=== PATIENT | male | born 1985 | race Caucasian/White ===

== ENCOUNTER 2016-06-24 01:14 | Emergency (ER) | payer SELFPAY ==
[2016-06-24] MEDS ORDERED: oxyCODONE/ACETAMINOPHEN 5/325 TABLET PO ONE (01:33)
[2016-06-24] MEDS ORDERED: SULFAMETHOXAZOLE/TRIMETHOPRIM 1 EACH TABLET PO ONE (02:28)
[2016-06-24] MEDS ORDERED: IBUPROFEN 400 MG TABLET PO ONE (02:32)
[2016-06-24 04:25] VITALS: BP 132/78
--- NOTE | 2016-06-24 05:14 | Diagnostic Imaging Report ---
[facility] [address] [facility].[address] [address] Report Submission Date: Jun 24, 2016 2:13:27 AM CDT Patient Study Name: ELLIS GAN Date: Jun 24, 2016 1:56:23 AM CDT Modality Type: CR Gender: M Description: UPPER EXTREMITY : 87 Institution: [facility] Physician: GRACE ADAM - QUEENIE Left hand - three views Clinical history: Injury. Pain. Findings: Examination of the left hand in palmar, lateral and oblique views demonstrates a fracture through the base of the fourth distal phalanx. There is resorption at the fracture site with minimal displacement of the fracture fragments by 1-2 mm. There is no new fracture identified. Impression: 1. Transverse fracture of the base of the fourth distal phalanx with resorption at the fracture site. 2. No new fracture since 06/13/2016. Electronically signed on Jun 24, 2016 2:13:27 AM CDT by: Philipp WHEATLEY
--- NOTE | 2016-06-24 12:10 | ED Physician Documentation ---
Hand Injury - HISTORIAN Historian: patient - HPI Stated Complaint: Injury to distal Left 4th digit Chief Complaint: Hand Injury Additional Information: punched wall, same hand that he broke left 4th finger on 1-2 weeks ago Onset: just prior to arrival Where: home Severity: moderate Duration: persistent since (injury) Context: blow Location of Injury: L fingers Modifying Factors: pain on movement Further Comments: no - ROS CONST: no problems GI/: denies: problems urinating, nausea NEURO: none CVS/RESP: none EYES/ENT: none MS/SKIN/LYMPH: other (left 4th finger) - PAST HX Past History: none Immunizations: referred to PCP Allergies/Adverse Reactions: Allergies Allergy/AdvReac Type Severity Reaction Status Date / Time No Known Allergies Allergy Verified 06/24/16 01:26 Home Medications: Ambulatory Orders Medication Instructions Recorded NK [NK] 09/11/15 - SOCIAL HX Smoking History: cigarettes Alcohol Use: none Drug Use: none - FAMILY HX Family History: no significant history - VITAL SIGNS Vital Signs: Vital Signs Temp Pulse Resp BP Pulse Ox 88 20 132/78 95 06/24/16 04:22 06/24/16 04:22 06/24/16 04:22 06/24/16 01:15 - REVIEWED ASSESSMENTS Nursing Assessment Reviewed: Yes Vitals Reviewed: Yes Progress - Results/Orders Results/Orders: x-ray left hand ordered - Progress Progress: pt. given 800 mg Motrin p.o., 1 bactrim DS p.o. and 2 percocet 5/325 p.o. in er Critical Care Note - Critical Care Note Total Time (mins): 0 ED Results Lab/Radiology - Lab Results Lab Results: none ordered - Radiology Radiology Impressions: x-ray left hand shows no new fx, healing left 4th finger fx - Orders Orders: ED Orders Category Date Time Status HAND 3 VIEWS OR MORE [RAD] Stat Exams 06/24/16 Completed Ibuprofen [Advil] Med 06/24/16 02:32 Discontinued 800 mg PO NOW ONE Sulfamethoxazole/Trimethoprim [Bactrim Ds] Med 06/24/16 02:28 Discontinued 1 each PO NOW ONE oxyCODONE HCL/ACETAMINOPHEN [Percocet 5-325 mg Tablet] Med 06/24/16 01:33 Discontinued 2 each PO NOW ONE Hand Injury Physical Exam - Exam General Appearance: alert, moderate distress Hand: tenderness (left 4th nailbed), other (erythema left 4th nailbed) Wrist: normal inspection, non-tender, no evidence of injury, normal ROM Neuro: sensation nml, other (decreased sensation distal left 4th finger) Vascular: no vascular compromise Tendons: tendon function nml Forearm/Elbow/Arm: uninjured above wrist Skin: warm/dry, other (erythema distal left 4th finger) Head/ENT: nml inspection Neck/Back: nml inspection Resp/CVS: chest non-tender, breath sounds nml, heart sounds nml Abdomen: non-tender, no organomegaly, nml bowel sounds Discharge Clincal Impression: Cellulitis, finger Qualifiers: Laterality: left Qualified Code(s): L03.012 - Cellulitis of left finger Referrals: Primary Doctor,No [Primary Care Provider] - 2 Days Home Medications: Ambulatory Orders NK [NK] 09/11/15 Comments: discharged with script for Meloxicam 7.5 mg #10 1 p.o. bid and Tizanidine 4 mg # 20 1 p.o. qid Condition: Stable Disposition: 01 HOME, SELF-CARE Decision to Admit: NO Decision Time: 04:10
== END 2016-06-24 02:45 | disposition home or self-care (01) ==
LOC: ED 01:14
DX: L03.012 Cellulitis of left finger (principal)
CPT/HCPCS: 73130; A9270; 99283

== ENCOUNTER 2018-03-12 11:56 | Emergency (ER) | payer SELFPAY ==
[2018-03-12 12:21] VITALS: BP 142/87
[2018-03-12] MEDS ORDERED: cefTRIAXone SODIUM 250 MG INJ IM ONE (12:29)
[2018-03-12] MEDS ORDERED: AZITHROMYCIN 1 GM PACKET PO ONE (12:29)
[2018-03-12] MEDS ORDERED: AZITHROMYCIN 250 MG TABLET PO ONE (12:40)
--- NOTE | 2018-03-12 12:58 | ED Physician Documentation ---
Male Genitourinary Problems - HISTORIAN Historian: patient - HPI Stated Complaint: Burning on urination Chief Complaint: Male Genitourinary Problems Onset: days ago (Monday) Duration: continues in ED Further Comments: yes (32 year old male patient presents with complaint of green drainage from penis with urinary urgency and dysuria. Reports unprotected intercourse with 2 different women in past 14 days.) - Associated Symptoms Problems Urinating: burning w/ urination, pain w/ urination Penile Discharge Descripiton: thick ("green") Testicular Pain: none Testicular Swelling: none Penile Swelling: No Flank Pain: none Abdominal Pain: none - Sexual History Sexual History: unprotected intercourse (exposure from 2 women in the past 14 days. ) - ROS CONST: none GI/: denies: nausea, vomiting MS/SKIN/LYMPH: none CVS/RESP: none EYES/ENT: none - PAST HX Past History: denies: STD Cardiac Disease: none Surgeries/Procedures: none Allergies/Adverse Reactions: Allergies Allergy/AdvReac Type Severity Reaction Status Date / Time No Known Allergies Allergy Verified 03/12/18 12:23 Home Medications: Ambulatory Orders Medication Instructions Recorded NK 09/11/15 - SOCIAL HX Smoking History: cigarettes - FAMILY HX Family History: denies: none - VITAL SIGNS Vital Signs: Vital Signs Temp Pulse Resp BP Pulse Ox 98.4 F 106 H 16 142/87 99 03/12/18 12:09 03/12/18 12:09 03/12/18 12:09 03/12/18 12:09 03/12/18 12:09 - REVIEWED ASSESSMENTS Nursing Assessment Reviewed: Yes Vitals Reviewed: Yes Progress - Progress Progress: Patient treated in ER with rocephin and azithromycin. ED Results Lab/Radiology - Orders Orders: ED Orders Category Date Time Status GC [CHLAMYDIA & GONORRHOEAE] Stat Lab 03/12/18 Ordered Azithromycin [Zithromax] Med 03/12/18 12:29 Discontinued 1 gm PO NOW ONE Azithromycin [Zithromax] Med 03/12/18 12:40 Discontinued 1,000 mg PO .STK-MED ONE cefTRIAXone SODIUM [Rocephin] Med 03/12/18 12:29 Discontinued 125 mg IM NOW ONE Male Genitourinary Problems - EXAM General Appearance: mild distress, anxious Genitals: other (patient refused Male exam) EENT: eye inspection normal, DILLON Respiratory: no resp distress, chest non-tender, breath sounds normal CVS: reg rate & rhythm, heart sounds normal, equal pulses, no murmur, no gallop, PMI nml, no JVD, no friction rub, 24 Neuro/Psych: oriented X3, motor nml, sensation nml, mood/affect nml Skin: normal color, warm/dry, NR, INT, PAL, DR Discharge Clincal Impression: STD exposure Referrals: Primary Doctor,No [Primary Care Provider] - 2 Days Additional Instructions: STD screening has been completed. Results will be available Monday You have been treated for gonorrhea and chlamydia while you were in the ER Use a condom during sexual intercourse. Condition: Stable Disposition: HOME, SELF-CARE Decision to Admit: NO Decision Time: 12:47
== END 2018-03-12 13:09 | disposition home or self-care (01) ==
LOC: ED 11:56
DX: A54.9 Gonococcal infection, unspecified (principal); Z20.2 Contact with and (suspected) exposure to infections with a predominantly sexual mode of transmission
CPT/HCPCS: 87491; 87591; 96372; 99282; 99283; J0696

== ENCOUNTER 2018-03-23 15:43 | Emergency (ER) | payer SELFPAY ==
[2018-03-23 15:57] VITALS: BP 126/91
[2018-03-23] MEDS ORDERED: AZITHROMYCIN 1 GM PACKET PO ONE (16:40)
[2018-03-23] MEDS ORDERED: LIDOCAINE HCL 1%/EPI. (1:100,000) MDV 20ML VIAL IJ ONE (16:41)
[2018-03-23] MEDS ORDERED: cefTRIAXone SODIUM 1 GM INJ IM ONE (16:41)
[2018-03-23] MEDS ORDERED: LIDOCAINE HCL 1% PF 50MG/5ML AMP (IM/SUTURE/PAIN CLINIC) IJ ONE (17:06)
--- NOTE | 2018-03-23 17:33 | ED Physician Documentation ---
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 pt was seen here recently in the ED for penile discharge and treated for GC/chlamydia with Rocephin 150 mg and 1 gm azithromycin with symptoms resolving. He reports he was still having intercourse with partner and she has now developed symptoms. pt had a positive GC culture. Duration: gone now, better - Associated Symptoms Problems Urinating: none - Sexual History Sexual History: unprotected intercourse, known exp. to STD - ROS CONST: none - PAST HX Past History: other (denies ) Surgeries/Procedures: none Allergies/Adverse Reactions: Allergies Allergy/AdvReac Type Severity Reaction Status Date / Time No Known Allergies Allergy Verified 03/23/18 15:54 Home Medications: Ambulatory Orders Medication Instructions Recorded NK 09/11/15 - SOCIAL HX Smoking History: greater than 1 pack/day - FAMILY HX Family History: none - VITAL SIGNS Vital Signs: Vital Signs Temp Pulse Resp BP Pulse Ox 96.9 F L 123 H 16 126/91 98 03/23/18 17:33 03/23/18 17:33 03/23/18 17:33 03/23/18 17:33 03/23/18 17:33 - REVIEWED ASSESSMENTS Nursing Assessment Reviewed: Yes Vitals Reviewed: Yes ED Results Lab/Radiology - Lab Results Lab Results: Lab Results 03/23/18 16:19 Urine Color Yellow (YELLOW) Urine Appearance Clear (CLEAR) Urine pH 7.0 (5.0 - 8.0) Ur Specific [place] 1.025 (1.010-1.030) Urine Protein Negative mg/dL mg/dL (NEGATIVE) Urine Ketones Negative mg/dL mg/dL (NEGATIVE) Urine Occult Blood Negative (NEGATIVE) Urine Nitrite Negative (NEGATIVE) Urine Bilirubin Negative (NEGATIVE) Urine Urobilinogen 0.2 Eu Eu (0.2-1.0) Ur Leukocyte Esterase Negative (NEGATIVE) Urine Glucose Negative mg/dL mg/dL (NEGATIVE) - Orders Orders: ED Orders Category Date Time Status GC [CHLAMYDIA & GONORRHOEAE] Stat Lab 03/23/18 16:15 Received UA W/MICRO IF INDICATED Stat Lab 03/23/18 16:19 Completed Azithromycin [Zithromax] Med 03/23/18 16:40 Discontinued 1 gm PO NOW ONE Lidocaine 1% 5ml(IM or SUTURE) [Xylocaine] Med 03/23/18 17:06 Discontinued 21 mg IJ NOW ONE Lidocaine 1%/Epinephrine [Xylocaine 1%-EPI 1:100,000] Med 03/23/18 16:41 Discontinued 2.1 ml IJ NOW ONE cefTRIAXone SODIUM [Rocephin] Med 03/23/18 16:41 Discontinued 1 gm IM NOW ONE Male Genitourinary Problems - EXAM General Appearance: no acute distress, alert Abdomen: non-tender, no organomegaly Genitals: nml inspection, testicles nml palp. EENT: eye inspection normal, ENT inspection normal, pharynx normal, no signs of dehydration, DILLON, no nystagmus, TM's nml Neck: nml inspection Respiratory: no resp distress, chest non-tender, breath sounds normal CVS: reg rate & rhythm, heart sounds normal, equal pulses, no murmur, no gallop, PMI nml, no JVD, no friction rub, 24 Back: non-tender, painless ROM Extremities: normal range of motion, non-tender, normal inspection, no pedal edema, no calf tenderness, normal capillary refill Neuro/Psych: oriented X3, motor nml, sensation nml, mood/affect nml Skin: normal color, warm/dry, NR, INT, PAL, DR Discharge Clincal Impression: STD exposure Additional Instructions: no sexual activity until partners antibiotics resolved. then you must use protection until your cultures come back to make sure you are both adequately treated. follow up with health dept for further testing for hepatitis and HIV seek medical care immediately if difficult to wake or weakness, difficulty breathing, feeling faint or fainting, increased rash, chest pain, shortness of breath, or fever not controlled by tylenol/motrin or any concern. follow up with primary care next week or before if not improving as expected. PLEASE UNDERSTAND THAT THIS IS AN EMERGENCY EVALUATION FOR YOUR COMPLAINT AND BY NATURE IS LIMITED AND NOT A SUBSTITUTE FOR ONGOING MEDICAL CARE. EVEN THOUGH TEST RESULTS AND TREATMENT PLAN WERE EXPLAINED THERE MAY BE A NEED FOR ADDITIONAL TESTING TO FULLY DETERMINE THE EXTENT OF YOUR ILLNESS/INJURY/OR CONCERN SO YOU SHOULD CONTACT AND OR ESTABLISH WITH A PRIMARY CARE PROVIDER (OR REFERRAL DOCTOR IF APPLICABLE) FOR AN APPOINTMENT SOON POSSIBLE Condition: Good Disposition: 01 HOME, SELF-CARE Decision to Admit: NO Date of Decison to Admit: 03/23/18 Decision Time: 17:27
[2018-03-23 18:02] LABS: APPEARANCE,URINE CLEAR (CLEAR); COLOR,URINE YELLOW (YELLOW); OCCULT BLOOD,URINE NEGATIVE (NEGATIVE); UROBILINOGEN URINE 0.2 Eu (0.2-1.0)
== END 2018-03-23 17:33 | disposition home or self-care (01) ==
LOC: ED 15:43
DX: Z20.2 Contact with and (suspected) exposure to infections with a predominantly sexual mode of transmission (principal)
CPT/HCPCS: 81002; 87491; 87591; 96372; 99282; 99284; J0456; J0696

== ENCOUNTER 2018-06-02 13:08 | Emergency (ER) | payer SELFPAY ==
--- NOTE | 2018-06-02 13:18 | ED Physician Documentation ---
General Adult - HISTORIAN Historian: patient - HPI Stated Complaint: cough, fever Chief Complaint: Fever Onset: days ago (3) Timing: still present Severity: mild Further Comments: yes (He states starting late night. he reports fever and chills (he did not measure) cough that is productive and diarrhea - although he has no change in eating or drinking. Denies any sick contacts. No rash> mild headache. No OTC meds today) - ROS CONST: fever EYES/ENT: nasal drainage, nasal congestion. denies: sore throat CVS/RESP: cough. denies: chest pain, shortness of breath GI/: diarrhea. denies: abdominal pain, problems urinating, vomiting, nausea MS/SKIN/LYMPH: denies: rash NEURO/PSYCH: headache - PAST HX Past History: none Surgeries/Procedures: none Immunizations: UTD Allergies/Adverse Reactions: Allergies Allergy/AdvReac Type Severity Reaction Status Date / Time No Known Allergies Allergy Verified 03/23/18 15:54 Home Medications: Ambulatory Orders Medication Instructions Recorded NK 09/11/15 - SOCIAL HX Smoking History: cigarettes Alcohol Use: none Drug Use: none - FAMILY HX Family History: No - VITAL SIGNS Vital Signs: Vital Signs Temp Pulse Resp BP Pulse Ox 126/91 03/23/18 17:33 - REVIEWED ASSESSMENTS Nursing Assessment Reviewed: Yes Vitals Reviewed: Yes Progress - Progress Progress: 1425: discussed results and plan and he is agreeable DG ED Results Lab/Radiology - Radiology Radiology Impressions: PA and lateral chest Clinical history: Cough. Shortness of breath. Findings: Examination of the chest in PA and lateral views with no prior films for comparison demonstrates the lungs to be hyperinflated. There are mild reticular changes in the mid and lower lung zones suggesting bronchitis. Cardiovascular and mediastinal silhouettes are within normal limits. Impression: 1. Reticular changes in the mid and lower lung zones suggesting bronchitis. Electronically signed on Jun 02, 2018 2:23:41 PM [employer]ATOR [employer] by: Philipp Gr General Adult Physical Exam - PHYSICAL EXAM GENERAL APPEARANCE: no distress EENT: eye inspection normal, ENT inspection normal, pharynx normal, no signs of dehydration NECK: normal inspection RESPIRATORY: no resp distress, wheezes (exp on upper lobes ) CVS: reg rate & rhythm, heart sounds normal ABDOMEN: soft, normal bowel sounds, no distension, non-tender BACK: normal inspection SKIN: warm/dry, normal color EXTREMITIES: non-tender NEURO: oriented X3 Discharge Clincal Impression: Bronchitis, Influenza B Referrals: Primary Doctor,No [Primary Care Provider] - 2 Days Comments: 1. Tamiflu 75 mg take 1 bymouth twice daily x 5 days 2. Medrol Dose pack - as directed 3. ProAir 90mcg 2 puffs every 4 hours as needed for cough 4. OTC meds as directed for symptom control 5. See PCP in 2-4 days 6. Return to ER for any concerns Condition: Stable Disposition: 01 HOME, SELF-CARE Decision to Admit: NO Date of Decison to Admit: 06/02/18 Decision Time: 14:29
[2018-06-02] MEDS ORDERED: KETOROLAC TROMETHAMINE 60 MG/2 ML VIAL IM ONE (13:30)
[2018-06-02 14:00] VITALS: BP 124/77
--- NOTE | 2018-06-02 18:21 | Diagnostic Imaging Report ---
SISI WATSON [facility] [address] [facility].[address] [address] Report Submission Date: Jun 02, 2018 2:23:41 PM TRANSFORMATION SPECIALIST Patient Study Name: ELLIS GAN Date: Jun 02, 2018 1:50:19 PM TRANSFORMATION SPECIALIST Modality Type: DX Gender: M Description: CHEST 2VIEW : 87 Institution: [facility] Physician: SISI WATSON PA and lateral chest Clinical history: Cough. Shortness of breath. Findings: Examination of the chest in PA and lateral views with no prior films for comparison demonstrates the lungs to be hyperinflated. There are mild reticular changes in the mid and lower lung zones suggesting bronchitis. Cardiovascular and mediastinal silhouettes are within normal limits. Impression: 1. Reticular changes in the mid and lower lung zones suggesting bronchitis. Electronically signed on Jun 02, 2018 2:23:41 PM TRANSFORMATION SPECIALIST by: Philipp WHEATLEY
== END 2018-06-02 14:37 | disposition home or self-care (01) ==
LOC: ED 13:08
DX: J11.1 Influenza due to unidentified influenza virus with other respiratory manifestations (principal); J40 Bronchitis, not specified as acute or chronic; Z72.0 Tobacco use
CPT/HCPCS: 71046; 87400; 96372; 99283; J1885